=== PATIENT | female | born 1970 | race Caucasian/White ===

== ENCOUNTER 2018-08-05 17:29 | Emergency (ER) | payer SELFPAY ==
[2018-08-05 18:25] LABS: Urine Appearance Cloudy; Urine Blood 1+ (Negative); Urine Color Straw; Urine Ketones Negative (Negative); Urine Protein Negative (Negative); Urine Red Blood Cell Absent (Absent); Urine Specific Gravity 1.002 (1.010-1.030); Urine Urobilinogen Negative (Negative); Urine White Blood Cell Absent (Absent)
[2018-08-05 18:55] LABS: ABS Basophils 0 10^3/ul (0-0.2); ABS Eosinophils 0.1 10^3/ul (0-0.6); ABS Lymphocytes 1.8 10^3/ul (1.0-4.8); ABS Monocytes 0.5 10^3/ul (0-0.8); ABS Neutrophils 4.7 10^3/ul (1.5-7.7); ABS Nucleated RBC 0 10^3/ul; Eosinophil % 1.2 %; Hematocrit 41 % (35-47); Hemoglobin 13.4 g/dl (12.0-16.0); Lymphocyte % 25.6 %; Mean Corpuscular HGB Conc 33 g/dl (31-36); Mean Corpuscular Hemoglobin 31 pg (27-31); Mean Corpuscular Volume 93 fL (80-97); Mean Platelet Volume 8.1 fL (7.4-10.4); Nucleated Red Blood Cells % 0; Platelet Count 313 10^3/ul (150-450); Red Blood Count 4.37 10^6/ul (4.00-5.40); Red Cell Distribution Width 13 % (10.5-15); White Blood Count 7.2 10^3/ul (3.5-10.8)
[2018-08-05 19:08] LABS: EGFR Non-African American 88.2 (>60)
[2018-08-05] MEDS ORDERED: LORazepam TAB(*) 1 MG PO ONE (19:48)
[2018-08-05] MEDS ORDERED: Aspirin 81 mg CHEW TAB* 81 MG TAB.CHEW PO ONE (19:51)
--- NOTE | 2018-08-05 21:14 | ED ---
HPI Chest Pain - HPI Summary HPI Summary: Patient complains of left sided sternal chest pain starting today. States pain is intermittent. Patient states she has history of anxiety, having current anxiety attack, states chest pain is not associated with her anxiety attacks. Denies SOB, diaphoresis, N/V, fever, cough, sore throat, abdominal pain, change in urine, change in BM. Medical history is possible HTN. Last prior cardiac history, estrogen supplements, CP, history of blood clots, travel, recent immobility, history of cancer, . - History of Current Complaint Chief Complaint: EDChestPainROMI Time Seen by Provider: 08/05/18 19:37 Hx Obtained From: Patient Onset/Duration: Started Hours Ago Timing: Intermittent Initial Severity: Moderate Current Severity: Moderate Pain Intensity: 6 Pain Scale Used: 0-10 Numeric Chest Pain Location: Discrete at: Chest Pain Radiates: No Character: Dull/Aching Alleviating Factor(s): Nothing Associated Signs and Symptoms: Positive: Chest Pain - Allergy/Home Medications Allergies/Adverse Reactions: Allergies Allergy/AdvReac Type Severity Reaction Status Date / Time No Known Allergies Allergy Verified 08/05/18 17:34 PMH/Surg Hx/FS Hx/Imm Hx Endocrine/Hematology History: Denies: Hx Anticoagulant Therapy Cardiovascular History: Denies: Hx Cardiac Arrest History: Denies: Hx Dialysis Neurological History: Denies: Hx CVA Infectious Disease History: No Infectious Disease History: Denies: Traveled Outside the [place] in Last 30 Days Review of Systems Constitutional: Negative Eyes: Negative ENT: Negative Positive: Chest Pain Respiratory: Negative Gastrointestinal: Negative Genitourinary: Negative Musculoskeletal: Negative Skin: Negative Neurological: Negative Positive: Anxious All Other Systems Reviewed And Are Negative: Yes Physical Exam Triage Information Reviewed: Yes Vital Signs On Initial Exam: Initial Vitals Temp Pulse Resp BP Pulse Ox 98.8 F 88 18 178/94 98 08/05/18 17:30 08/05/18 17:30 08/05/18 17:30 08/05/18 17:30 08/05/18 17:30 Vital Signs Reviewed: Yes Appearance: Positive: Well-Appearing Skin: Positive: Warm Head/Face: Positive: Normal Head/Face Inspection Eyes: Positive: Normal Neck: Positive: Supple Respiratory/Lung Sounds: Positive: Clear to Auscultation Cardiovascular: Positive: Normal Abdomen Description: Positive: Nontender Musculoskeletal: Positive: Normal Neurological: Positive: Normal Psychiatric: Positive: Normal AVPU Assessment: Alert - [place] Coma Scale Best Eye Response: 4 - Spontaneous Best Motor Response: 6 - Obeys Commands Best Verbal Response: 5 - Oriented Coma Scale Total: 15 Diagnostics - Vital Signs Vital Signs Temp Pulse Resp BP Pulse Ox 08/05/18 20:26 14 08/05/18 19:52 98.4 F 86 24 183/113 100 08/05/18 17:30 98.8 F 88 18 178/94 98 - Laboratory Lab Results: Lab Results 08/05/18 08/05/18 08/05/18 Range/Units 18:26 18:35 18:35 WBC 7.2 (3.5-10.8) 10^3/ul RBC 4.37 (4.00-5.40) 10^6/ul Hgb 13.4 (12.0-16.0) g/dl Hct 41 (35-47) % MCV 93 (80-97) fL MCH 31 (27-31) pg MCHC 33 (31-36) g/dl RDW 13 (10.5-15) % Plt Count 313 (150-450) 10^3/ul MPV 8.1 (7.4-10.4) fL Neut % (Auto) 65.6 % Lymph % (Auto) 25.6 % Stokes % (Auto) 7.1 % Eos % (Auto) 1.2 % Baso % (Auto) 0.5 % Absolute Neuts (auto) 4.7 (1.5-7.7) 10^3/ul Absolute Lymphs (auto) 1.8 (1.0-4.8) 10^3/ul Absolute Monos (auto) 0.5 (0-0.8) 10^3/ul Absolute Eos (auto) 0.1 (0-0.6) 10^3/ul Absolute Basos (auto) 0 (0-0.2) 10^3/ul Absolute Nucleated RBC 0 10^3/ul Nucleated RBC % 0 Sodium 142 (135-145) mmol/L Potassium 4.3 (3.5-5.0) mmol/L Chloride 111 (101-111) mmol/L Carbon Dioxide 26 (22-32) mmol/L Anion Gap 5 (2-11) mmol/L BUN 13 (6-24) mg/dL Creatinine 0.71 (0.51-0.95) mg/dL Est GFR ( Amer) 106.8 (>60) Est GFR (Non-Af Amer) 88.2 (>60) BUN/Creatinine Ratio 18.3 (8-20) Glucose 81 (70-100) mg/dL Lactic Acid 0.9 (0.5-2.0) mmol/L Calcium 9.2 (8.6-10.3) mg/dL Total Bilirubin 0.30 (0.2-1.0) mg/dL AST 16 (13-39) U/L ALT 10 (7-52) U/L Alkaline Phosphatase 46 (34-104) U/L Troponin I 0.01 (<0.04) ng/mL Total Protein 6.9 (6.4-8.9) g/dL Albumin 4.2 (3.2-5.2) g/dL Globulin 2.7 (2-4) g/dL Albumin/Globulin Ratio 1.6 (1-3) Urine Color Urine Appearance Urine pH (5-9) Ur Specific Hume (1.010-1.030) Urine Protein (Negative) Urine Ketones (Negative) Urine Blood (Negative) Urine Nitrate (Negative) Urine Bilirubin (Negative) Urine Urobilinogen (Negative) Ur Leukocyte Esterase (Negative) Urine WBC (Auto) (Absent) Urine RBC (Auto) (Absent) Ur Squamous Epith Cells (Absent) Urine Bacteria (Absent) Urine Glucose (Negative) 08/05/18 08/05/18 Range/Units 20:30 Unknown WBC (3.5-10.8) 10^3/ul RBC (4.00-5.40) 10^6/ul Hgb (12.0-16.0) g/dl Hct (35-47) % MCV (80-97) fL MCH (27-31) pg MCHC (31-36) g/dl RDW (10.5-15) % Plt Count (150-450) 10^3/ul MPV (7.4-10.4) fL Neut % (Auto) % Lymph % (Auto) % Stokes % (Auto) % Eos % (Auto) % Baso % (Auto) % Absolute Neuts (auto) (1.5-7.7) 10^3/ul Absolute Lymphs (auto) (1.0-4.8) 10^3/ul Absolute Monos (auto) (0-0.8) 10^3/ul Absolute Eos (auto) (0-0.6) 10^3/ul Absolute Basos (auto) (0-0.2) 10^3/ul Absolute Nucleated RBC 10^3/ul Nucleated RBC % Sodium (135-145) mmol/L Potassium (3.5-5.0) mmol/L Chloride (101-111) mmol/L Carbon Dioxide (22-32) mmol/L Anion Gap (2-11) mmol/L BUN (6-24) mg/dL Creatinine (0.51-0.95) mg/dL Est GFR ( Amer) (>60) Est GFR (Non-Af Amer) (>60) BUN/Creatinine Ratio (8-20) Glucose (70-100) mg/dL Lactic Acid (0.5-2.0) mmol/L Calcium (8.6-10.3) mg/dL Total Bilirubin (0.2-1.0) mg/dL AST (13-39) U/L ALT (7-52) U/L Alkaline Phosphatase (34-104) U/L Troponin I 0.00 (<0.04) ng/mL Total Protein (6.4-8.9) g/dL Albumin (3.2-5.2) g/dL Globulin (2-4) g/dL Albumin/Globulin Ratio (1-3) Urine Color Straw Urine Appearance Cloudy Urine pH 7.0 (5-9) Ur Specific Hume 1.002 L (1.010-1.030) Urine Protein Negative (Negative) Urine Ketones Negative (Negative) Urine Blood 1+ A (Negative) Urine Nitrate Negative (Negative) Urine Bilirubin Negative (Negative) Urine Urobilinogen Negative (Negative) Ur Leukocyte Esterase Negative (Negative) Urine WBC (Auto) Absent (Absent) Urine RBC (Auto) Absent (Absent) Ur Squamous Epith Cells Present A (Absent) Urine Bacteria Absent (Absent) Urine Glucose Negative (Negative) Result Diagrams: 08/05/18 18:35 08/05/18 18:35 Lab Statement: Any lab studies that have been ordered have been reviewed, and results considered in the medical decision making process. Chest Pain Course/Dx - Course Course Of Treatment: Patient complains of left sided sternal chest pain starting today. States pain is intermittent. Patient states she has history of anxiety, having current anxiety attack, states chest pain is not associated with her anxiety attacks. Denies SOB, diaphoresis, N/V, fever, cough, sore throat, abdominal pain, change in urine, change in BM. Medical history is possible HTN. Last prior cardiac history, estrogen supplements, CP, history of blood clots, travel, recent immobility, history of cancer, . Physical exam unremarkable. Vital signs within normal limits. Labs unremarkable. Chest x-ray unremarkable. EKG unremarkable. Likely chest pain related to anxiety attack. - Diagnoses Provider Diagnoses: Anxiety Discharge - Sign-Out/Discharge Documenting (check all that apply): Patient Departure - Discharge Plan Condition: Stable Disposition: HOME Prescriptions: hydrOXYzine pamoate [Vistaril] 50 mg PO TID 30 Days #90 capsule Patient Education Materials: Anxiety (ED) Referrals: Ralph Jimenez MD [Primary Care Provider] - Additional Instructions: Up with primary care. Return to the ED for any new or worsening symptoms - Billing Disposition and Condition Condition: STABLE Disposition: Home
== END 2018-08-05 21:42 | disposition home or self-care (01) ==
LOC: ED 17:29
DX: F41.9 Anxiety disorder, unspecified (principal); R07.2 Precordial pain
CPT/HCPCS: 36415; 71045; 80053; 81003; 81015; 83605; 84484; 85025; 93005; 99282; A9270-GY

== ENCOUNTER 2018-10-15 09:02 | Emergency (ER) | payer OTHER ==
--- NOTE | 2018-10-15 10:29 | UC ---
Throat Pain/Nasal [place] HPI - HPI Summary HPI Summary: 48 y/o female presents to the urgent care c/o left side facial swelling and posterior upper and lower jaw dental pain which is radiating to her left ear since this morning when she woke up. Pt reports she has been with nasal congestion and clear nasal discharge, Now she has moderate sinus pressure. She reports about 1 month ago she lost a dental filling form a molar which has cavities. Pt states pain is 4/10. Pt states she was recently seen here for an anxiety episode and she is feeling better with the Hydroxyzyne PO. However she has appt with her new PCP on Saturday10/20/2018 and she run out of medication and request a refill. She also states she has been monitor her BP at home until she sees her PCP. However when she sees the Dr it becomes very high. Pt denies fever , dizziness, anxiety, visual changes, SOB, palpations, abdominal pain, SPENCE, N/V/ D. - History of Current Complaint Chief Complaint: UCGeneralIllness Stated Complaint: SINUS PAIN Time Seen by Provider: 10/15/18 10:28 Hx Obtained From: Patient Hx Last Menstrual Period: 09/22/18 ?: No Onset/Duration: Gradual Onset, Lasting Hours - 12 hrs, Still Present Severity: Moderate Pain Intensity: 4 Pain Scale Used: 0-10 Numeric Cough: None Associated Signs & Symptoms: Positive: Nasal Discharge - clear. Negative: Dysphagia, Fever - Epiglottits Risk Factors Epiglottis Risk Factors: Negative - Allergies/Home Medications Allergies/Adverse Reactions: Allergies Allergy/AdvReac Type Severity Reaction Status Date / Time No Known Allergies Allergy Verified 10/15/18 10:10 PMH/Surg Hx/FS Hx/Imm Hx Previously Healthy: Yes Cardiovascular History: Hypertension Psychological History: Anxiety Other History Of: Negative For: Anticoagulant Therapy - Surgical History Surgical History: None - Family History Known Family History: Positive: Cardiac Disease, Hypertension - Social History Occupation: Employed Full-time Lives: With Family Alcohol Use: Daily Alcohol Amount: one drink per day Substance Use Type: None Smoking Status (MU): Light Every Day Tobacco Smoker Type: Cigarettes - Immunization History Most Recent Tetanus Shot: utd Review of Systems All Other Systems Reviewed And Are Negative: Yes Constitutional: Positive: Negative Skin: Positive: Negative Eyes: Positive: Negative ENT: Positive: Dental Pain - left upper jaw mild pain with cavities in some molars with left cheek swelling, Ear Ache - left ear pain, Nasal Discharge - clear. Negative: Sore Throat Respiratory: Positive: Negative Cardiovascular: Positive: Negative Gastrointestinal: Positive: Negative Genitourinary: Positive: Negative Motor: Positive: Negative Neurovascular: Positive: Negative Musculoskeletal: Positive: Negative Neurological: Positive: Negative Psychological: Positive: Negative Is Patient Immunocompromised?: No Physical Exam - Summary Physical Exam Summary: Vital Signs Reviewed: Yes General: Well-Appearing, Well-Nourished female sitting in the examining table w /o any respiratory or pain distress Eyes: Positive: Conjunctiva Clear - PERRLA, EOMI, ENT: Positive: Normal ENT inspection, Hearing grossly normal, Pharynx normal, TMs normal - B/L external ear canals clear,. Negative: Tonsillar swelling, Tonsillar exudate, Trismus Dental: Positive: Gross Decay/Caries w/ fracture molars #15, 16 and 17 , Abscess @ - gingival swelling and erythema, tender to percussion molar 16. involves tissue surrounding the teeth #15 and 16, positive Cervical Lymphadenopathy - anterior. Neck: Positive: Supple Respiratory: Positive: Chest non-tender, Lungs clear, Normal breath sounds, No respiratory distress Cardiovascular: Positive: RRR, No Murmur, Pulses Normal, Brisk Capillary Refill Abdomen Description: Positive: Nontender, No Organomegaly, Soft. Negative: CVA Tenderness (R), CVA Tenderness (L) Bowel Sounds: Positive: Present Musculoskeletal: Positive: Strength Intact, ROM Intact, No Edema Neurological Exam: Normal Psychological Exam: Normal Skin Exam: Normal Triage Information Reviewed: Yes Vital Signs: Initial Vital Signs Temp 97.5 F 10/15/18 10:06 Pulse 93 10/15/18 10:06 Resp 17 10/15/18 10:06 BP 172/103 10/15/18 10:06 Pulse Ox 100 10/15/18 10:06 Throat Pain/Nasal Course/Dx - Course Course Of Treatment: 48 y/o female presents to the urgent care c/o left side facial swelling and posterior upper and lower jaw dental pain which is radiating to her left ear since this morning when she woke up. Pt reports she has been with nasal congestion and clear nasal discharge, Now she has moderate sinus pressure. She reports about 1 month ago she lost a dental filling form a molar which has cavities. Pt states pain is 4/10. Pt states she was recently seen here for an anxiety episode and she is feeling better with the Hydroxyzyne PO. However she has appt with her new PCP on Saturday10/20/2018 and she run out of medication and request a refill. She also states she has been monitor her BP at home until she sees her PCP. However when she sees the Dr it becomes very high. Pt denies fever, dizziness, anxiety, visual changes, SOB, palpations, abdominal pain, SPENCE, N/V/D. Hx obtained. Pt w/ possible dental abscess on molar 15 and 16 which has gross cavities. Also Molar #17 fractured w/ gross decay too on examination. Pt Rx Clindamycin PO and Ibuprofen PO fas directed below. Pt strongly advised to f/u with Dentist as soon as possible further evaluation and treatment. Also given a refill on Hydroxyzyne PO until she sees her PCP Saturday. Strongly advised not to miss her appt since her BP needs management.D/ C instructions explained. Pt understood and agreed with plan of care. Pt left clinic ambulating and hemodynamically stable. - Differential Dx/Diagnosis Differential Diagnosis/HQI/PQRI: Peritonsillar Abscess, Pharyngitis, Other - dental abscess, gross dental decay, cavities Provider Diagnosis: Dental abscess, Uncontrolled hypertension Discharge - Sign-Out/Discharge Documenting (check all that apply): Patient Departure - d/c home All imaging exams completed and their final reports reviewed: No Studies - Discharge Plan Condition: Stable Disposition: HOME Prescriptions: Clindamycin Cap(NF) [Clindamycin Cap 300 mg Cap(NF)] 300 mg PO TID #30 cap hydrOXYzine pamoate [Vistaril] 50 mg PO TID 30 Days #30 capsule Ibuprofen TAB* [Motrin TAB* 600 MG] 600 mg PO Q6H PRN #30 tab PRN Reason: Pain Patient Education Materials: Dental Abscess (ED), Low-Sodium Diet (ED) Referrals: Elia Trevino MD [Primary Care Provider] - 3 Days Additional Instructions: 1-Please take full course of antibiotic to avoid resistance. 2- Take Ibuprofen PO as instructed after meals to alleviate pain and swelling. 3- F/u with your Dentist or Dental List provided as soon as possible for further treatment. 4- If symptoms do not improve or worsen please return to the urgent care or f/u with your PCP on your next appt Saturday10/20/2018 for further evaluation and treatment 5-Your BP is continues to be elevated today. Please take your BP medications and decrease salt in your diet, monitor BP and if it continues to be elevated please f/u with your PCP on Saturday10/20/2018 for further management. If you develop chest pain, dizziness, visual disturbances, SOB, or severe SPENCE please go immediately to the ER for further management - Billing Disposition and Condition Condition: STABLE Disposition: Home - Attestation Statements Provider Attestation: I was available for consult. This patient was seen by the [facility]. The patient was not presented to, seen by, or examined by me. -Jacquelyn
== END 2018-10-15 10:55 | disposition home or self-care (01) ==
LOC: UCEAST 09:02
DX: K04.7 Periapical abscess without sinus (principal); R09.81 Nasal congestion; R09.89 Other specified symptoms and signs involving the circulatory and respiratory systems; J34.89 Other specified disorders of nose and nasal sinuses; I10 Essential (primary) hypertension; F17.210 Nicotine dependence, cigarettes, uncomplicated
CPT/HCPCS: 99212; G0463

== ENCOUNTER 2023-10-17 14:33 | Observation (INO) ==
[2023-10-17] MEDS ORDERED: Ondansetron ODT 4 mg TAB 4 MG TAB PO PRN (14:54)
[2023-10-17] MEDS ORDERED: Ondansetron 4 mg VIAL 2 MG/ML 2 ml VIAL IV PRN (14:54)
[2023-10-17] MEDS ORDERED: Lactulose 30 ml UDC PO PRN (14:54)
[2023-10-17] MEDS ORDERED: Magnesium Hydroxide LIQ 30 ML UDC PO PRN (14:54)
[2023-10-17 15:23] LABS: ABS Basophils 0.1 10^3/uL (0.0-0.1); ABS Eosinophils 0.1 10^3/uL (0.0-0.5); ABS Lymphocytes 1.5 10^3/uL (1.0-4.8); ABS Monocytes 0.4 10^3/uL (0.0-0.9); ABS Neutrophils 5.8 10^3/uL (1.5-7.6); Hematocrit 41.6 % (35-45); Hemoglobin 14.1 g/dL (11.5-14.3); Lymphocyte % 19.6 %; Mean Corpuscular Hemoglobin 30.9 pg (27-33); Mean Corpuscular Hgb Conc 33.8 g/dL (31-36); Mean Corpuscular Volume 91.4 fL (80-97); Mean Platelet Volume 8.2 fL (7.5-11.2); Nucleated Red Blood Cells % 0.1 %/100WBC (0.0-0.8); Platelet Count 429 10^3/uL (150-450); Red Blood Count 4.56 10^6/uL (3.63-4.92); Red Cell Distribution Width 13.5 % (12-17); White Blood Count 7.8 10^3/uL (3.8-11.8)
[2023-10-17 15:53] LABS: Albumin 4.1 g/dL (3.2-5.2); Albumin/Globulin Ratio 1.2 (1-3); C Reactive Protein 25.34 mg/L (<8.01); Calcium 9.8 mg/dL (8.6-10.3); Creatinine, Serum 0.62 mg/dL (0.51-0.95); Globulin 3.4 g/dL (2-4); Potassium 4.9 mmol/L (3.5-5.0); Total Bilirubin 0.3 mg/dL (0.2-1.0); Total Protein 7.5 g/dL (6.4-8.9); eGFR CKD-EPI 107.1 (>60)
[2023-10-17] MEDS ORDERED: Vancomycin per Pharmacy 1 EA NOTE FOLLOW UP SCH (16:00)
[2023-10-17] MEDS ORDERED: Cefepime 2 GM in Dextrose 2 GM/50 ML BAG IV SCH (16:00)
[2023-10-17] MEDS ORDERED: Vancomycin 1,000 MG - ED ONCE IVPB ONE (16:00)
[2023-10-17] MEDS ORDERED: Polyethylene Glycol 3350 17 GM PACKET PO PRN (17:00)
[2023-10-17 17:09] LABS: Erythrocyte Sed Rate 33 mm/Hr (0-29)
[2023-10-17 17:47] LABS: Magnesium 2.2 mg/dL (1.9-2.7)
[2023-10-17] MEDS: Nicotine GUM 2MG FRUIT FLAVOR PO PRN (18:58)
[2023-10-17] MEDS ORDERED: Nicotine Lozenge mini 2 MG LOZNG.MINI MT PRN (19:07)
[2023-10-17] MEDS: ceFAZolin 2 GM PREMIX 2 GM/50 ML BAG IVPB SCH ×2 (20:03→20:39)
[2023-10-17] MEDS: Magnesium Hydroxide LIQ 30 ML UDC PO SCH (21:24)
[2023-10-18 07:01] LABS: ABS Basophils 0.1 10^3/uL (0.0-0.1); ABS Eosinophils 0.1 10^3/uL (0.0-0.5); ABS Lymphocytes 1.2 10^3/uL (1.0-4.8); ABS Monocytes 0.4 10^3/uL (0.0-0.9); ABS Neutrophils 4.8 10^3/uL (1.5-7.6); Eosinophil % 1.3 %; Hematocrit 39.5 % (35-45); Hemoglobin 13.1 g/dL (11.5-14.3); Lymphocyte % 18.9 %; Mean Corpuscular Hemoglobin 30.2 pg (27-33); Mean Corpuscular Hgb Conc 33.1 g/dL (31-36); Mean Corpuscular Volume 91.2 fL (80-97); Mean Platelet Volume 7.7 fL (7.5-11.2); Nucleated Red Blood Cells % 0.1 %/100WBC (0.0-0.8); Platelet Count 348 10^3/uL (150-450); Red Blood Count 4.33 10^6/uL (3.63-4.92); Red Cell Distribution Width 13.5 % (12-17); White Blood Count 6.6 10^3/uL (3.8-11.8)
[2023-10-18] MEDS: Multivitamins/Minerals TAB PO SCH (08:46)
[2023-10-18] MEDS ORDERED: Vitamin THERAPEUTIC TAB PO SCH (09:00)
[2023-10-18] MEDS ORDERED: Enoxaparin 40 MG/0.4 ML SYR SUBCUT SCH (12:00)
[2023-10-18] MEDS: NICORETTE GUM PO PRN (17:53)
[2023-10-19 07:32] LABS: ABS Basophils 0.1 10^3/uL (0.0-0.1); ABS Eosinophils 0.1 10^3/uL (0.0-0.5); ABS Lymphocytes 1.2 10^3/uL (1.0-4.8); ABS Monocytes 0.4 10^3/uL (0.0-0.9); ABS Neutrophils 4.8 10^3/uL (1.5-7.6); Eosinophil % 1.7 %; Hematocrit 42.5 % (35-45); Hemoglobin 14.3 g/dL (11.5-14.3); Lymphocyte % 18.8 %; Mean Corpuscular Hemoglobin 30.8 pg (27-33); Mean Corpuscular Hgb Conc 33.6 g/dL (31-36); Mean Corpuscular Volume 91.9 fL (80-97); Mean Platelet Volume 7.7 fL (7.5-11.2); Platelet Count 383 10^3/uL (150-450); Red Blood Count 4.62 10^6/uL (3.63-4.92); Red Cell Distribution Width 13.3 % (12-17); White Blood Count 6.6 10^3/uL (3.8-11.8)
[2023-10-19 13:40] VITALS: BP 187/107
== END 2023-10-19 15:30 | disposition home or self-care (01) ==
LOC: AA → MED 14:51
PROVIDERS: ADMIT Orthopaedic Surgery; ATTEND Orthopaedic Surgery